=== PATIENT | female | born 1980 | race Caucasian/White ===

== ENCOUNTER 2017-03-19 12:55 | Emergency (ER) | payer OTHER ==
[2017-03-19 13:02] VITALS: TEMP 98.2
[2017-03-19] MEDS ORDERED: LIDOCAINE 5% 1 EA PATCH TD ONE (13:17)
[2017-03-19] MEDS ORDERED: LIDOCAINE 5% 1 EA PATCH TD SCH (13:30)
[2017-03-19] MEDS ORDERED: IBUPROFEN 600 MG TAB PO ONE (14:41)
[2017-03-19] MEDS ORDERED: OXYCODONE/APAP 5/325 TAB PO ONE (14:41)
[2017-03-19] MEDS ORDERED: ONDANSETRON DISINTEGRATING 4 MG TAB PO ONE (14:41)
--- NOTE | 2017-03-19 17:03 | EDPHY ---
H & P Stated Complaint: slipped and slid down stairs/hit on coccyx/felt snap in upper back - Personal History LMP (Females 10-55): 1-7 Days Ago Current Tetanus/Diphtheria Vaccine: Yes - Medical/Surgical History Hx Asthma: No Hx Chronic Respiratory Disease: No Hx Diabetes: No Hx Cardiac Disease: No Hx Renal Disease: No Hx Cirrhosis: No Hx Alcoholism: No Hx HIV/AIDS: No Hx Splenectomy or Spleen Trauma: No Other PMH: denies - Social History Smoking Status: Never smoked <Marvin Chan - Last Filed: 03/20/17 16:31> <Alyssa Erwin - Last Filed: 03/21/17 01:10> HPI/ROS: Chief complaint: Back pain History of present illness: This is a 36-year-old female who presents to the emergency department for evaluation of back pain. Patient reports earlier today she was walking down steps when she lost her footing, slipped and fell directly onto her tailbone. She states this caused her to whip backwards and she felt a pop in her upper back and has developed pain in this region. She did not actually strike this region against the ground, it was purely the whipping motion with the pop and pain. Symptoms have been persistent. She denies other associated signs or symptoms including no report of trauma to other parts of the body including the head or neck, no chest pain, no abdominal pain, no neurologic symptoms such as paresthesias, weakness or paralysis or bowel or bladder dysfunction. Review of systems: A 10 point review of systems was obtained and other than described above was negative (Marvin Chan) - Physical Exam Exam: General Appearance: Alert, nontoxic Eyes: PERRLA Respiratory: Lungs clear to auscultation bilaterally Cardiac: Regular rate and rhythm. Gastrointestinal: Bowel sounds normal, abdomen soft, nondistended, nontender. Neurological: Alert and oriented x4. Cranial nerves 2-12 grossly intact. Strength and sensation intact and symmetrical. Skin: No lesions consistent with trauma. Musculoskeletal: Head is nontender without crepitus or bony deformity. The spine is nontender to palpation along its entire length including no crepitus, no bony deformity, no step-off. However she does report there is pain around the T4-T5 level. Chest wall intact palpation. Patient moving all extremities without difficulty. (Marvin Chan) Constitutional: Initial Vital Signs Temperature (C) 36.8 C 03/19/17 12:58 Heart Rate 89 03/19/17 12:58 Respiratory Rate 22 H 03/19/17 12:58 Blood Pressure 108/64 03/19/17 12:58 O2 Sat (%) 100 03/19/17 12:58 O2 Delivery Mode Room Air Allergies/Adverse Reactions: No Known Allergies Allergy (Unverified 03/19/17 12:57) Home Medications: Medication Instructions Recorded LORAZEPAM 03/19/17 oxyCODONE/APAP 5/325 [Percocet 1 tab PO QID PRN #20 tab 03/19/17 5/325 (*)] Medical Decision Making <Marvin Chan - Last Filed: 03/20/17 16:31> <Alyssa Erwin - Last Filed: 03/21/17 01:10> ED Course/Re-evaluation: Patient is seen in conjunction with my secondary supervising physician Dr. Alyssa Erwni. Patient presents to the emergency department after falling and injuring her upper thoracic spine. On presentation she is nontoxic. She has a nonfocal neurologic exam. Given history of trauma a thoracic spine x-ray series is obtained and concerning for an acute T4 compression fracture, CT scan of the thoracic spine is therefore obtained and does reveal T4 and T5 injury, further the is concerned for mediastinal bleeding. A CT angiogram of the chest will be obtained to better understand the bleeding in the mediastinum. Care of patient is turned over to my attending physician Dr. Alyssa Erwin at end of shift. (Marvin Chan) Assumed care of this patient for MILE Nguyen at shift change. Pending results of CT angiogram study. CT angiogram of the chest is negative for any acute arterial injury. There is a small amount of anterior mediastinal blood presumably a venous source. 19:[address] Juan Molina, neurosurgeon. He recommends the patient be placed in a Cervical-Thoracic Orthosis brace for comfort and follow up in the next couple weeks for re-evaluation. Held a long discussion with the patient and explained the CT findings, as well as the recommendations regarding the brace. Discussed follow-up, work restrictions, as well as pain medications and symptom relief. (Alyssa Erwin) Differential Diagnosis: Included but not limited to contusion, sprain or strain, bony fracture, spinal cord injury, intrathoracic injury (Marvin Chan) - Data Points Laboratory Results: Laboratory Results 03/19/17 17:21 03/19/17 17:21 Medications Given: Discontinued Medications Hydromorphone HCl (Dilaudid) 1 mg IVP EDNOW ONE Stop: 03/19/17 20:42 Last Admin: 03/19/17 20:47 Dose: 1 mg Ibuprofen (Motrin) 600 mg PO EDNOW ONE Stop: 03/19/17 14:42 Last Admin: 03/19/17 15:05 Dose: 600 mg Lidocaine (Lidoderm 5%) 1 ea TD DAILY DEISY Stop: 09/15/17 13:29 Last Admin: 03/19/17 13:25 Dose: 1 ea Ondansetron HCl (Zofran Odt) 4 mg PO EDNOW ONE Stop: 03/19/17 14:42 Last Admin: 03/19/17 15:05 Dose: 4 mg Oxycodone/Acetaminophen (Percocet 5/325) 1 tab PO EDNOW ONE Stop: 03/19/17 14:42 Last Admin: 03/19/17 15:05 Dose: 1 tab Oxycodone/Acetaminophen (Percocet 5/325mg Prepack#4) 1 btl TAKEHOME EDNOW ONE Stop: 03/19/17 20:42 Last Admin: 03/19/17 21:20 Dose: 1 btl Departure <Marvin Chan - Last Filed: 03/20/17 16:31> <Alyssa Erwin - Last Filed: 03/21/17 01:10> - Departure Disposition: Home, Routine, Self-Care Clinical Impression: Thoracic compression fracture Qualifiers: Encounter type: initial encounter Fracture type: closed Qualified Code(s): S22.000A - Wedge compression fracture of unspecified thoracic vertebra, initial encounter for closed fracture Condition: Good Instructions: Oxycodone/Acetaminophen (By mouth), Thoracolumbar Fracture (ED), Thoracic Pain (ED) Additional Instructions: 1. Please wear the brace until you are re-evaluated by Dr. Molina. 2. Please call Dr. Molina's office and make an appointment for 1-2 weeks. 3. I recommend Ibuprofen (Motrin, Advil) or Naproxen Sodium (Aleve) for pain and anti-inflammatory effects. You may take either one, but do not take both. Your dose is: Ibuprofen 600 mg every 6-8 hours with food. OR Naproxen Sodium (Aleve) 220 mg every 12 hours. 4. You been given a prescription for oxycodone. Please use this as needed for some severe pain not controlled with the nonsteroidals. 5. Activity as tolerated while wearing the brace.. Referrals: NONE *PRIMARY CARE P,. [Primary Care Provider] - As per Instructions Juan Molina MD [Medical Doctor] - As per Instructions Stand Alone Forms: Work Excuse Prescriptions: oxyCODONE/APAP 5/325 [Percocet 5/325 (*)] 1 tab PO QID PRN #20 tab PRN Reason: Pain Report Scribed for: Alyssa Erwin Report Scribed by: Nelia Kyle Date of Report: 03/19/17 Time of Report: 20:47 <Alyssa Erwin - Last Filed: 03/21/17 01:10>
[2017-03-19 17:34] LABS: % IMMATURE GRANULYOCYTES 0.5 % (0.0-1.1); ABSOLUTE IMMATURE GRANULOCYTES 0.08 10^3/uL (0.00-0.10); ADD DIFF? NO; ADD MORPH? NO; ADD SCAN? NO; ATYPICAL LYMPHOCYTE FLAG 0 (0-99); FRAGMENT RBC FLAG 0 (0-99); HEMATOCRIT 41.5 % (38.0-47.0); HEMOGLOBIN 14.3 g/dL (12.6-16.3); LEFT SHIFT FLG 20 (0-99); LIPEMIA HEMOLYSIS FLAG 90 (0-99); MEAN CELL HEMOGLOBIN 31.8 pg (27.9-34.1); MEAN CELL HEMOGLOBIN CONCENTR. 34.5 g/dL (32.4-36.7); MEAN CELL VOLUME 92.4 fL (81.5-99.8); MEAN PLATELET VOLUME 10.7 fL (8.7-11.7); PLATELET CLUMPS FLAG 20 (0-99); PLATELET COUNT 211 10^3/uL (150-400); RED BLOOD CELL COUNT 4.49 10^6/uL (4.18-5.33); RED CELL DISTRIBUTION WIDTH 11.8 % (11.5-15.2)
[2017-03-19 17:43] LABS: INR 1.04 (0.83-1.16); PROTIME(PATIENT) 13.5 SEC (12.0-15.0)
[2017-03-19 17:44] LABS: APTT 24.9 SEC (23.0-38.0)
[2017-03-19 17:50] LABS: ANION GAP 11 mEq/L (8-16); CALCIUM 9.5 mg/dL (8.5-10.4); CARBON DIOXIDE 21 mEq/l (22-31); CHLORIDE 104 mEq/L (97-110); CREATININE 0.8 mg/dL (0.6-1.0); GLOMERULAR FILTRATION RATE > 60; GLUCOSE 95 mg/dL (70-100); POTASSIUM 4.2 mEq/L (3.5-5.2); SODIUM 136 mEq/L (134-144)
[2017-03-19] MEDS ORDERED: IOPAMIDOL (ISOVUE 370) 100 ML BTL IV ONE (18:14)
[2017-03-19 19:28] VITALS: RESP 16
[2017-03-19] MEDS ORDERED: OXYCODONE/APAP 5/325MG PREPACK#4 BTL TAKEHOME ONE (20:41)
[2017-03-19] MEDS ORDERED: HYDROmorphONE/DILAUDID 1 MG/ML SYR IVP ONE (20:41)
[2017-03-19] MEDS ORDERED: PATCH REMOVAL 1 EA PATCH TD SCH ×2 (21:00)
[2017-03-19 21:22] VITALS: BP 133/65; PULSE 80; O2SAT 93
[2017-03-20] MEDS ORDERED: LIDOCAINE 5% 1 EA PATCH TD SCH (09:00)
== END 2017-03-19 21:22 | disposition home or self-care (01) ==
DX: S22.050A Wedge compression fracture of T5-T6 vertebra, initial encounter for closed fracture (principal); S22.040A Wedge compression fracture of fourth thoracic vertebra, initial encounter for closed fracture; W01.198A Fall on same level from slipping, tripping and stumbling with subsequent striking against other object, initial encounter; Y99.8 Other external cause status; Y93.01 Activity, walking, marching and hiking
CPT/HCPCS: 82947-QW; 96374; J1170; Q9967